=== PATIENT | female | born 1935 | race Caucasian/White ===

== ENCOUNTER 2017-09-21 11:55 | Emergency (ER) | payer OTHER ==
--- NOTE | 2017-09-21 13:12 | EDPHY ---
H & P Time Seen by Provider: 09/21/17 13:08 HPI/ROS: CHIEF COMPLAINT: Increasing confusion HISTORY OF PRESENT ILLNESS: History from the daughter and [id number] as the patient has pretty severe Alzheimer's. Apparently she was admitted 3 weeks ago at [facility] for hyponatremia and was apparently supposed to start oral salt tablets but that did not happen. During this hospitalization she had CT and MRI which did not show any acute findings per the family. She has had worse confusion over the past week including not recognizing her family and being more weak and hunched over and having difficulty getting around. Not associated with weakness or numbness in extremities or difficulty with speech. Does have 24 hr care. Family thinks it is possible just that she has worsening Alzheimer's. REVIEW OF SYSTEMS: Further history not obtainable because of the patient's dementia. She denies any pain. No urinary symptoms. No cough or fever. The patient and family deny history of injury fall or trauma. Further review of systems unable because of the patient's Alzheimer's. Normal oral intake. PAST MEDICAL HISTORY: Includes Alzheimer's and COPD Social history: No alcohol, here with daughter and [id number]. Primary care [place]. General Appearance: Alert and follows commands Eyes: No scleral icterus. Pupils equal reactive extraocular motion intact ENT, Mouth: Normal mucous membranes. No tongue laceration or abrasion. Respiratory: Normal respiratory effort, breath sounds equal, lungs are clear to auscultation. Cardiovascular: Regular rate and rhythm. Gastrointestinal: Abdomen is soft and non tender. Neurological: Alert, face symmetric, normal motor and sensory in extremities. Follows commands. Very poor short-term memory. Skin: Warm and dry, no rashes. Musculoskeletal: No peripheral edema. Neck normal ROM no meningeal signs. Psychiatric: Not agitated. Emergency Department course/MDM: Plan for UA and EKG, labs to include serum sodium. Apparently her baseline is around 132. Most likely worsening Alzheimer's vs UTI, thing stroke unlikely, [employer] mass or bleed or infection unlikely. We discussed repeating brain imaging with family and I are in agreement that this is not appropriate at this time. Check urinalysis. 1510: Labs show UTI without evidence of pyelonephritis or sepsis. Keflex and urine culture. Discussed with family they are comfortable taking her home. Smoking Status: Former smoker Constitutional: Initial Vital Signs Temperature (C) 36.6 C 05/15/18 12:03 Heart Rate 70 09/21/17 12:03 Respiratory Rate 16 09/21/17 12:03 Blood Pressure 117/74 09/21/17 12:03 O2 Sat (%) 92 09/21/17 12:03 O2 Delivery Mode Room Air Allergies/Adverse Reactions: acetaminophen [From Vicodin] Allergy (Verified 09/21/17 12:03) alendronate sodium [From Fosamax] Allergy (Verified 09/21/17 12:03) atorvastatin [From Lipitor] Allergy (Verified 09/21/17 12:03) ciprofloxacin Allergy (Verified 09/21/17 12:03) fluoxetine Allergy (Verified 09/21/17 12:03) galantamine Allergy (Verified 09/21/17 12:03) hydrocodone [From Vicodin] Allergy (Verified 09/21/17 12:03) hydroxyzine Allergy (Verified 09/21/17 12:03) memantine Allergy (Verified 09/21/17 12:03) morphine Allergy (Verified 09/21/17 12:03) Nitrofuran Analogues Allergy (Verified 09/21/17 12:03) nortriptyline Allergy (Verified 09/21/17 12:03) pravastatin [From Pravachol] Allergy (Verified 09/21/17 12:03) sulfamethoxazole [From Septra] Allergy (Verified 09/21/17 12:03) trimethoprim [From Septra] Allergy (Verified 09/21/17 12:03) Home Medications: Medication Instructions Recorded Aspirin [Aspirin 81mg] 81 mg PO DAILY 02/02/11 Amlodipine Besylate 10 mg PO 02/03/11 Atenolol 50 mg PO 02/03/11 Actonel 09/21/17 Cephalexin [Keflex] 500 mg PO QID #28 cap 09/21/17 Ocuvite Adult 50 Plus Softgel 09/21/17 Sertraline HCl 09/21/17 Vitamin B 12 09/21/17 Vitamin D3 09/21/17 Medical Decision Making - Diagnostics EKG Interpretation: 12-lead EKG interpreted by me; official reading is in trace master. My interpretation is sinus rhythm with left anterior fascicular block. - Data Points Laboratory Results: Laboratory Results 09/21/17 13:12 09/21/17 13:12 09/21/17 09/21/1709/21/18 14:20 13:12 13:12 WBC 12.89 10^3/uL H 10^3/uL (3.80-9.50) RBC 4.28 10^6/uL 10^6/uL (4.18-5.33) Hgb 13.6 g/dL g/dL (12.6-16.3) Hct 38.8 % % (38.0-47.0) MCV 90.7 fL fL (81.5-99.8) MCH 31.8 pg pg (27.9-34.1) MCHC 35.1 g/dL g/dL (32.4-36.7) RDW 14.5 % % (11.5-15.2) Plt Count 426 10^3/uL H 10^3/uL (150-400) MPV 8.0 fL L fL (8.7-11.7) Neut % (Auto) 84.2 % H % (39.3-74.2) Lymph % (Auto) 5.8 % L % (15.0-45.0) [place] % (Auto) 8.7 % % (4.5-13.0) Eos % (Auto) 0.5 % L % (0.6-7.6) Baso % (Auto) 0.3 % % (0.3-1.7) Nucleat RBC Rel Count 0.0 % % (0.0-0.2) Absolute Neuts (auto) 10.84 10^3/uL H 10^3/uL (1.70-6.50) Absolute Lymphs (auto) 0.75 10^3/uL L 10^3/uL (1.00-3.00) Absolute Monos (auto) 1.12 10^3/uL H 10^3/uL (0.30-0.80) Absolute Eos (auto) 0.07 10^3/uL 10^3/uL (0.03-0.40) Absolute Basos (auto) 0.04 10^3/uL 10^3/uL (0.02-0.10) Absolute Nucleated RBC 0.00 10^3/uL 10^3/uL (0-0.01) Immature Gran % 0.5 % % (0.0-1.1) Immature Gran # 0.07 10^3/uL 10^3/uL (0.00-0.10) Sodium 132 mEq/L L mEq/L (135-145) Potassium 4.8 mEq/L mEq/L (3.3-5.0) Chloride 97 mEq/L mEq/L (97-110) Carbon Dioxide 25 mEq/l mEq/l (22-31) Anion Gap 10 mEq/L mEq/L (8-16) BUN 16 mg/dL mg/dL (7-23) Creatinine 1.2 mg/dL H mg/dL (0.6-1.0) Estimated GFR 43 Glucose 84 mg/dL mg/dL (70-100) Calcium 9.0 mg/dL mg/dL (8.5-10.4) Urine Color COLORLESS Urine Appearance HAZY Urine pH 7.5 (5.0-7.5) Ur Specific [place] <= 1.005 (1.002-1.030) Urine Protein TRACE H (NEGATIVE) Urine Ketones NEGATIVE (NEGATIVE) Urine Blood 1+ H (NEGATIVE) Urine Nitrate POSITIVE H (NEGATIVE) Urine Bilirubin NEGATIVE (NEGATIVE) Urine Urobilinogen 0.2 EU EU (0.2-1.0) Ur Leukocyte Esterase 3+ H (NEGATIVE) Urine RBC 3-5 /hpf H /hpf (0-3) Urine WBC 50-182 /hpf H /hpf (0-3) Ur Epithelial Cells TRACE /lpf /lpf (NONE-1+) Urine Mucus TRACE /lpf /lpf (NONE-1+) Urine Glucose NEGATIVE (NEGATIVE) Medications Given: Discontinued Medications Cephalexin HCl (Keflex) 500 mg PO EDNOW ONE PRN Reason: Protocol Stop: 09/21/17 15:05 Last Admin: 09/21/17 15:13 Dose: 500 mg Departure - Departure Disposition: Home, Routine, Self-Care Clinical Impression: Alzheimer disease Qualifiers: Alzheimer's disease onset: unspecified onset Dementia behavioral disturbance: without behavioral disturbance Qualified Code(s): G30.9 - Alzheimer's disease, unspecified Urinary tract infection Qualifiers: Urinary tract infection type: site unspecified Hematuria presence: without hematuria Qualified Code(s): N39.0 - Urinary tract infection, site not specified Condition: Good Instructions: Urinary Tract Infection in Women (ED), Alzheimer Disease (DC) Additional Instructions: Urine culture pending; call [phone] in 48 hours for result. Sodium level today 132. Referrals: [facility] ,. [Edm Groups for Call Sched] - As per Instructions Prescriptions: Cephalexin [Keflex] 500 mg PO QID #28 cap
[2017-09-21 13:30] LABS: PLATELET COUNT 426 10^3/uL (150-400)
--- NOTE | 2017-09-21 14:08 | CPEKG ---
Heart Rate: 66 RR Interval: 909 P-R Interval: 188 QRSD Interval: 76 QT Interval: 408 QTC Interval: 428 P [place]: 44 QRS [place]: -57 T Wave [place]: 56 EKG Severity - ABNORMAL ECG - EKG Impression: SINUS RHYTHM EKG Impression: LEFT ANTERIOR FASCICULAR BLOCK Electronically Signed By: Joe Davepnort 21-Sep-2017 14:12:32
[2017-09-21] MEDS ORDERED: CEPHALEXIN 500 MG CAP PO ONE (15:04)
[2017-09-21 15:44] VITALS: BP 110/68
== END 2017-09-21 15:30 | disposition home or self-care (01) ==
DX: G30.9 Alzheimer's disease, unspecified (principal); N39.0 Urinary tract infection, site not specified; B96.20 Unspecified Escherichia coli [E. coli] as the cause of diseases classified elsewhere; J44.9 Chronic obstructive pulmonary disease, unspecified; Z79.82 Long term (current) use of aspirin; Z87.891 Personal history of nicotine dependence